=== PATIENT | female | born 1960 | race Caucasian/White ===

== ENCOUNTER 2016-05-08 10:26 | Emergency (ER) | payer OTHER ==
[2016-05-08 10:31] VITALS: BP 142/91; PULSE 72; TEMP 98.2; BMI 31.9
[2016-05-08] MEDS ORDERED: ACETAMINOPHEN 325 MG TABLET (FP) PO ONE (11:36)
[2016-05-08] MEDS ORDERED: OXYCODONE/APAP 5/325MG COMBO TABLET PO ONE (11:36)
[2016-05-08] MEDS ORDERED: OXYCODONE/APAP 5/325MG COMBO TABLET ONE (11:48)
[2016-05-08] MEDS ORDERED: ACETAMINOPHEN 325 MG TABLET (FP) ONE (11:48)
--- NOTE | 2016-05-08 11:49 | PDOC ---
History of Present Illness - General Chief Complaint: Pain Stated Complaint: LT SIDE OF FACE PAIN Time Seen by Provider: 05/08/16 11:17 History Source: Patient Exam Limitations: No Limitations - History of Present Illness Initial Comments: 05/08/16 11:45 55-year-old female presents to the ED with complaints of left neck pain radiating to her left jaw and temporal region. Patient thinks pain started about 5 days ago and went to her dentist taking was her back tooth but when the x-ray was taken the doctor said there was no signs of infection but may be due to a crack in her porcelain crown causing nerve discomfort. Patient was given prophylactic antibiotics and ibuprofen until her follow-up next week. Patient does have history of thyroid CA with radiation therapy 5 years ago. Patient denies change in voice, difficulty swallowing, neck stiffness, fever or chills. Timing/Duration: constant Severity: moderate Associated Symptoms: reports: denies symptoms Past History - Past Medical History Allergies/Adverse Reactions: Allergies Allergy/AdvReac Type Severity Reaction Status Date / Time No Known Drug Allergies Allergy Verified 05/08/16 10:30 Home Medications: Ambulatory Orders Montelukast Na [Singulair -] 10 mg PO HS #0 tablet 06/06/12 Citalopram Hydrobromide [Celexa] 20 mg PO HS 10/15/13 Levothyroxine Sodium [Synthroid] 150 mcg PO DAILY 10/15/13 Diazepam [Valium] 5 mg PO Q8H #5 tablet MDD 3 03/11/16 Anemia: Yes Asthma: Yes Cancer: Yes (thyroid) GI Disorders: Yes (acid reflux) Suicide Attempt (Hx): No Thyroid Disease: No - Immunization History Immunization Up to Date: Yes - Psycho/Social/Smoking Cessation Hx Anxiety: No Suicidal Ideation: No Smoking Status: No Smoking History: Never smoked Have you smoked in the past 12 months: No Number of Cigarettes Smoked Daily: 0 Hx Alcohol Use: No Drug/Substance Use Hx: No Substance Use Type: None Hx Substance Use Treatment: No Patient Lives Alone: No Lives with/in: spouse/SO Review of Systems - Review of Systems Able to Perform ROS?: Yes Constitutional: No: Symptoms Reported HEENTM: Yes: Throat Pain, Dental Problems. No: Difficulty Swallowing, Mouth Swelling Respiratory: No: Cough, Shortness of Breath Cardiac (ROS): No: Symptoms Reported Musculoskeletal: Yes: Neck Pain (left ) Integumentary: No: Symptoms Reported Neurological: Yes: Headache (left temporal) Endocrine: No: Symptoms Reported Hematologic/Lymphatic: No: Symptoms Reported *Physical Exam - Vital Signs Last Vital Signs Temp Pulse Resp BP Pulse Ox 98.2 F 72 20 142/91 100 05/08/16 10:27 05/08/16 10:27 05/08/16 10:27 05/08/16 10:27 05/08/16 10:27 - Physical Exam General Appearance: Yes: Nourished, Appropriately Dressed. No: Apparent Distress HEENT: positive: EOMI, RENETTA, TMs Normal, Pharynx Normal (no abscess/caries , # 17 tender to touch when tapped with porcelin cap over tooth. ) Neck: positive: Tender (left scm ), Supple, Tender lateral (left). negative: Decreased range of motion, Lymphadenopathy (R), Lymphadenopathy (L) Respiratory/Chest: positive: Lungs Clear, Normal Breath Sounds. negative: Respiratory Distress, Accessory Muscle Use Cardiovascular: positive: Regular Rhythm, Regular Rate. negative: Murmur Gastrointestinal/Abdominal: positive: Soft. negative: Tenderness Integumentary: positive: Normal Color, Warm, Moist Neurologic: positive: Motor Strength 5/5 (ambulatory) ED Treatment Course - RADIOLOGY Radiology Studies Ordered: Category Date Time Status SOFT TISSUE NECK CT W/O CONTR [CT] Stat CT Scan 05/08/16 11:35 Ordered Medical Decision Making - Medical Decision Making 05/08/16 12:01 Patient with left neck pain for the past 5 days associated with left dental pain. Patient with normal clinical exam except tenderness to #17 and with noted tenderness to the left SCM. Althought this may be dental nerve pain. But due to patient's history of thyroid cancer patient's concerning for mass. Pt ordered for percocet and soft tissue ct without contrast. 05/08/16 13:04 Patient after receiving Percocet states she started to feel nauseous and slightly dizzy. Patient states did not eat food today and states sometimes she gets like this was an empty stomach. Patient ordered for Zofran and will reevaluate CT shows apparent interval development of subtle trace amount of retropharyngeal fluid at the level of the upper neck questionable due to current or recent pharyngitis. Recommend correlation clinically and follow-up imaging to document resolution. No obvious mass lesion or lymphadenopathy. There is no CT evidence of neoplastic disease or acute pathology. Patient will be sent home and to follow-up with her dentist as scheduled next week and follow up with her PCP. 05/08/16 13:16 Pt states feeling better and requests to leave. Pt requesting percocet and will eat before meals. *DC/Admit/Observation/Transfer Diagnosis at time of Disposition: Neck pain on left side - Discharge Dispostion Disposition: HOME Condition at time of disposition: Improved - Referrals Referrals: Kelly Andujar MD [Primary Care Provider] - - Patient Instructions Printed Discharge Instructions: DI for Neck Pain Additional Instructions: May apply heating pad to the affected area. Drink plenty of warm fluids to alleviate her discomfort. Continue with your medication regimen as prescribed by her dentist and follow- up as scheduled.
[2016-05-08] MEDS ORDERED: ONDANSETRON *ODT* 4 MG TABLET ONE (12:41)
[2016-05-08] MEDS ORDERED: ONDANSETRON 8 MG TABLET (FP) PO ONE (13:06)
== END 2016-05-08 14:06 | disposition home or self-care (01) ==
LOC: JERFT 10:26 → JER 10:26 → JERFT 14:06
DX: M54.2 Cervicalgia (principal); D64.9 Anemia, unspecified; J45.909 Unspecified asthma, uncomplicated; Z85.850 Personal history of malignant neoplasm of thyroid
CPT/HCPCS: 70490-TC; 99281-25

== ENCOUNTER 2018-09-29 14:43 | Emergency (ER) | payer OTHER | END 2018-09-29 20:54 | disposition home or self-care (01) | LOC: JER 14:43 ==

== ENCOUNTER 2018-12-27 01:08 | Emergency (ER) | payer OTHER ==
[2018-12-27 01:41] VITALS: TEMP 97.9; BMI 31.8
[2018-12-27] MEDS ORDERED: hydrOXYzine HCL 50 MG TABLET PO ONE (02:52)
--- NOTE | 2018-12-27 03:29 | PDOC ---
History of Present Illness - General Chief Complaint: Psychiatric Stated Complaint: FEELING ANXIOUS Time Seen by Provider: 12/27/18 02:09 History Source: Patient Exam Limitations: No Limitations - History of Present Illness Initial Comments: 12/27/18 03:24 58F w/ pmh depression, thyroid CA, asthma, chest myoma s/p resection presents to [facility] with complaint of inability to sleep due to sensation of feeling anxious, panicky, hot + cold sensation running behind head, temporal-posterior GARCÍA(5/10 severity) x2d. Also had complaint of nonproductive cough, trouble swallowing. Endorses feeling anxious about her daughter. Pt's mother in July. No changes in medications. Compliant with meds. Has had h/o of inability to sleep for 17d, 15ys prior. Associated Symptoms: reports: headaches. denies: loss of appetite, nausea/ vomiting, rash, seizure, shortness of breath Past History - Past Medical History Allergies/Adverse Reactions: Allergies Allergy/AdvReac Type Severity Reaction Status Date / Time No Known Drug Allergies Allergy Verified 12/27/18 01:38 Home Medications: Ambulatory Orders Montelukast Na [Singulair -] 10 mg PO HS #0 tablet 06/06/12 Levothyroxine Sodium [Synthroid] 150 mcg PO DAILY 10/15/13 Citalopram Hydrobromide [Celexa -] 10 mg PO DAILY 12/27/18 hydrOXYzine HCL [Atarax -] 25 mg PO DAILY PRN #14 tablet 12/27/18 Anemia: Yes Asthma: Yes Cancer: Yes (thyroid) COPD: No GI Disorders: Yes (acid reflux) Psychiatric Problems: Yes (depression,) Thyroid Disease: Yes (thyroid ca,) - Immunization History Immunization Up to Date: Yes - Suicide/Smoking/Psychosocial Hx Smoking Status: No Smoking History: Unknown if ever smoked Have you smoked in the past 12 months: No Number of Cigarettes Smoked Daily: 0 Information on smoking cessation initiated: No Hx Alcohol Use: No Drug/Substance Use Hx: No Substance Use Type: None Hx Substance Use Treatment: No *Physical Exam - Vital Signs Last Vital Signs Temp Pulse Resp BP Pulse Ox 97.9 F 83 20 168/89 98 12/27/18 01:15 12/27/18 01:15 12/27/18 01:15 12/27/18 01:15 12/27/18 01:15 ED Treatment Course - Medications Given in the ED: ED Medications Discontinued Medications Generic Name Dose Route Start Last Admin Trade Name Freq PRN Reason Stop Dose Admin Hydroxyzine HCl 50 mg 12/27/18 02:52 12/27/18 03:18 Hydroxyzine Hcl PO 12/27/18 02:53 50 mg ONCE ONE Administration Medical Decision Making - Medical Decision Making 12/27/18 03:32 - will administer atarax - will prescribe atarax for home *DC/Admit/Observation/Transfer Diagnosis at time of Disposition: Anxiety disorder, unspecified Qualifiers: Anxiety disorder type: unspecified anxiety disorder Qualified Code(s): F41.9 - Anxiety disorder, unspecified - Discharge Dispostion Disposition: HOME Condition at time of disposition: Stable Decision to Admit order: No - Prescriptions Prescriptions: hydrOXYzine HCL [Atarax -] 25 mg PO DAILY PRN #14 tablet PRN Reason: Anxiety - Referrals Referrals: Kelly Andujar MD [Primary Care Provider] - - Patient Instructions Printed Discharge Instructions: DI for Anxiety -- Adult Additional Instructions: You were evaluated for anxiety and inability to sleep. You were treated with hydroxyzine to relieve your anxiety and insomnia. You were deemed stable for discharge. please return to the ED for: - severe unremitting headache - severe dizziness - Post Discharge Activity
--- NOTE | 2018-12-27 03:42 | PDOC ---
Attending Attestation - Resident Resident Name: Arthur Estrada - ED Attending Attestation I have performed the following: I have examined & evaluated the patient, The case was reviewed & discussed with the resident, I agree w/resident's findings & plan - HPI HPI: 12/27/18 03:39 see resident hpi - Physicial Exam PE: 12/27/18 03:40 agree with resident exam - Medical Decision Making 12/27/18 03:40 58 yo female with insomnia due to panic and anxiety related to family issues no si/hi plan for d/c with atarax prn with OP psychiatry follow up
[2018-12-27 03:49] VITALS: BP 144/80; PULSE 76
--- NOTE | 2018-12-28 11:46 | EKG ---
Test Reason : Blood Pressure : / mmHG Vent. Rate : 066 BPM Atrial Rate : 066 BPM P-R Int : 190 ms QRS Dur : 072 ms QT Int : 402 ms P-R-T Axes : 071 005 049 degrees QTc Int : 421 ms POOR DATA QUALITY, INTERPRETATION MAY BE ADVERSELY AFFECTED NORMAL SINUS RHYTHM NORMAL ECG WHEN COMPARED WITH ECG OF 29-SEP-2018 14:46, NO SIGNIFICANT CHANGE WAS FOUND Confirmed by FIDELINA GARZA, SO ([id number]) on 12/28/2018 11:46:10 AM Referred By: Confirmed By:SO KITCHEN MD
== END 2018-12-27 03:58 | disposition home or self-care (01) ==
LOC: JER 01:08
DX: F41.9 Anxiety disorder, unspecified (principal); J45.909 Unspecified asthma, uncomplicated; F32.9 Major depressive disorder, single episode, unspecified; K21.9 Gastro-esophageal reflux disease without esophagitis; Z85.850 Personal history of malignant neoplasm of thyroid
CPT/HCPCS: 93005; 93010; 99281-25

== ENCOUNTER 2019-01-03 16:07 | Emergency (ER) | payer OTHER ==
--- NOTE | 2019-01-03 16:16 | PDOC ---
History of Present Illness <Daysi Mcallister - Last Filed: 01/03/19 18:13> - General History Source: Patient Exam Limitations: No Limitations - History of Present Illness Initial Comments: 58 year old female with PMH GERD (noncompliant with medication), anxiety, depression, asthma, thyroid cancer presented to ED for epigastric pain since 1529 today. Pt reported that she did not take her Omeprazole 20 mg last night or this morning, and she is prescribed BID. She stated she did not eat any food all day, and then while in the office at her Thyroid doctor appointment she decided to take 1 Omeprazole 20 mg. She stated she immediately felt epigastric pain, radiating up her throat, constant, burning, no aggravating or alleviating factors. Pt reported nausea, sour taste in mouth, 2 episodes of loose stools. Pt denied chest pain, shortness of breath, vomiting, blood in stool. <Sharee Pimentel - Last Filed: 01/03/19 19:20> - General Chief Complaint: Pain Stated Complaint: ABDOMINAL PAIN Time Seen by Provider: 01/03/19 16:15 Past History <Jose Mcallisterica - Last Filed: 01/03/19 18:13> - Past Medical History Anemia: Yes Asthma: Yes Cancer: Yes (thyroid) COPD: No GI Disorders: Yes (acid reflux) Psychiatric Problems: Yes (depression,) Thyroid Disease: Yes (thyroid ca,) - Immunization History Immunization Up to Date: Yes - Suicide/Smoking/Psychosocial Hx Smoking Status: No Smoking History: Unknown if ever smoked Have you smoked in the past 12 months: No Number of Cigarettes Smoked Daily: 0 Hx Alcohol Use: No Drug/Substance Use Hx: No Substance Use Type: None Hx Substance Use Treatment: No <LorenSharee - Last Filed: 01/03/19 19:20> - Past Medical History Allergies/Adverse Reactions: Allergies Allergy/AdvReac Type Severity Reaction Status Date / Time No Known Drug Allergies Allergy Verified 01/03/19 16:57 Home Medications: Ambulatory Orders Montelukast Na [Singulair -] 10 mg PO HS #0 tablet 06/06/12 Levothyroxine Sodium [Synthroid] 150 mcg PO DAILY 10/15/13 Citalopram Hydrobromide [Celexa -] 10 mg PO DAILY 12/27/18 hydrOXYzine HCL [Atarax -] 25 mg PO DAILY PRN #14 tablet 12/27/18 Omeprazole 20 mg PO DAILY 01/03/19 Review of Systems - Review of Systems Able to Perform ROS?: Yes Comments:: General: denied fever, chills, generalized weakness. HEENT: denied sore throat, rhinorrhea, ear pain. Cardiovascular: denied chest pain, palpitations, syncope, diaphoresis. Respiratory: denied shortness of breath, cough, sputum production, hemoptysis. Gastrointestinal: admitted to abdominal pain, nausea. denied vomiting, diarrhea , constipation, blood in stool. Genitourinary: denied dysuria, increased urinary frequency, hematuria, urinary incontinence, flank pain. Back: denied back pain. Musculoskeletal: denied joint pain, muscle pain, joint swelling. Neurological: denied headache, dizziness, numbness, tingling, weakness. Integumentary: denied rash, laceration, abrasion. Hematologic/Lymphatic: denied bruising or bleeding. <Sharee Pimentel - Last Filed: 01/03/19 19:20> *Physical Exam - Vital Signs Last Vital Signs Temp Pulse Resp BP Pulse Ox 97.9 F 56 L 16 116/61 98 01/03/19 16:49 01/03/19 16:49 01/03/19 16:49 01/03/19 16:49 01/03/19 16:49 <Daysi Mcallister - Last Filed: 01/03/19 18:13> - Physical Exam Comments: Constitutional: Well-nourished, Well-developed, appearing stated age. overweight. HEENT: head is normocephalic, atraumatic. EOMI. PERRLA. Neck: supple. Full ROM. Cardiovascular: regular heart rhythm. no murmurs. no pericardial friction rub. Respiratory: clear to auscultation bilaterally. no crackles, rhonchi or wheezing. no stridor. Gastrointestinal: soft, nontender. normal bowel sounds. no rebound, guarding, masses. Extremities: peripheral pulses intact. no lower extremity edema. Neurological: CN 2-12 grossly intact. moves all four extremities. Psych: awake, alert, oriented x3. follows commands. answers questions appropriately. <Sharee Pimentel - Last Filed: 01/03/19 19:20> ED Treatment Course - LABORATORY CBC & Chemistry Diagram: 01/03/19 17:15 01/03/19 17:15 - ADDITIONAL ORDERS Additional order review: Laboratory Results 01/03/19 01/03/19 17:15 17:14 Magnesium 2.2 Lipase 91 Urine Color Yellow Urine Appearance Clear Urine pH 8.5 H D Ur Specific [place] 1.017 Urine Protein Negative Urine Glucose (UA) Negative Urine Ketones Negative Urine Blood Trace Urine Nitrite Negative Urine Bilirubin Negative Urine Urobilinogen 0.2 Ur Leukocyte Esterase 1+ H Urine WBC (Auto) 7 Urine Casts (Auto) 10 U Epithel Cells (Auto) 2.3 Urine Bacteria (Auto) 11.8 Urine Yeast (Auto) Review A* 01/03/19 17:15 RBC 4.98 MCV 83.6 MCHC 31.9 L RDW 15.7 H MPV 7.3 L Neutrophils % 75.5 Lymphocytes % 15.5 D Monocytes % 5.7 Eosinophils % 0.9 Basophils % 2.4 H - Medications Given in the ED: ED Medications Discontinued Medications Generic Name Dose Route Start Last Admin Trade Name Tonja PRN Reason Stop Dose Admin Al Hydroxide/Mg Hydroxide 30 ml 01/03/19 16:29 01/03/19 17:27 Mylanta Oral Suspension - PO 01/03/19 16:30 30 ml ONCE ONE Administration Famotidine/Sodium Chloride 20 mg in 50 mls @ 100 mls/hr 01/03/19 16:29 17:28 Pepcid 20 Mg Premixed Ivpb - IVPB 01/03/19 16:58 100 mls/hr ONCE ONE Administration Sodium Chloride 1,000 mls @ 1,000 mls/hr 01/03/19 16:29 01/03/19 17:27 Normal Saline - IV 01/03/19 17:28 1,000 mls/hr ASDIR STA Administration Ondansetron HCl 4 mg 01/03/19 16:29 01/03/19 17:28 Zofran Injection IVPUSH 01/03/19 16:30 4 mg ONCE ONE Administration <Daysi Mcallister - Last Filed: 01/03/19 18:13> - LABORATORY CBC & Chemistry Diagram: 01/03/19 17:15 01/03/19 17:15 <Sharee Pimentel - Last Filed: 01/03/19 19:20> Medical Decision Making - Medical Decision Making 58 year old female wit above PMH presented to ED for epigastric pain since 1529 today. Abdominal examination revealed no tenderness to palpation, murphys negative. Initial Vital Signs Temp Pulse Resp BP Pulse Ox 97.9 F 56 L 16 116/61 98 01/03/19 16:49 01/03/19 16:49 01/03/19 16:49 01/03/19 16:49 01/03/19 16:49 Afebrile. No tachycardia. Mild bradycardia - pt is asymptomatic. No tachypnea. No hypotension. No hypoxia on room air. Labs ordered: CBC, CMP, Mag, TSH, troponin Imaging ordered: none Medications ordered: pepcid, maalox, zofran, normal saline bolus 1000 cc once EKG performed at 1645: rate 56, regular rhythm, normal axis, normal intervals, QTc 413, no acute ST changes. 01/03/19 18:00 CBC WBC 6.9 K/mm3 (4.0-10.0) 01/03/19 17:15 RBC 4.98 M/mm3 (3.60-5.2) 01/03/19 17:15 Hgb 13.3 GM/dL (10.7-15.3) 01/03/19 17:15 Hct 41.7 % (32.4-45.2) 01/03/19 17:15 MCV 83.6 fl (80-96) 01/03/19 17:15 MCH 26.7 pg (25.7-33.7) 01/03/19 17:15 MCHC 31.9 g/dl (32.0-36.0) L 01/03/19 17:15 RDW 15.7 % (11.6-15.6) H 01/03/19 17:15 Plt Count 308 K/MM3 (134-434) 01/03/19 17:15 MPV 7.3 fl (7.5-11.1) L 01/03/19 17:15 Absolute Neuts (auto) 5.2 K/mm3 (1.5-8.0) 01/03/19 17:15 Neutrophils % 75.5 % (42.8-82.8) 01/03/19 17:15 Lymphocytes % 15.5 % (8-40) D 01/03/19 17:15 Monocytes % 5.7 % (3.8-10.2) 01/03/19 17:15 Eosinophils % 0.9 % (0-4.5) 01/03/19 17:15 Basophils % 2.4 % (0-2.0) H 01/03/19 17:15 Nucleated RBC % 0 % (0-0) 01/03/19 17:15 No leukocytosis. No anemia. Urine Test Results Urine Color Yellow 01/03/19 17:14 Urine Appearance Clear 01/03/19 17:14 Urine pH 8.5 (5.0-8.0) H D 01/03/19 17:14 Ur Specific [place] 1.017 (1.010-1.035) 01/03/19 17:14 Urine Protein Negative (NEGATIVE) 01/03/19 17:14 Urine Glucose (UA) Negative (NEGATIVE) 01/03/19 17:14 Urine Ketones Negative (NEGATIVE) 01/03/19 17:14 Urine Blood Trace (NEGATIVE) 01/03/19 17:14 Urine Nitrite Negative (NEGATIVE) 01/03/19 17:14 Urine Bilirubin Negative (NEGATIVE) 01/03/19 17:14 Ur Leukocyte Esterase 1+ (NEGATIVE) H 01/03/19 17:14 WBC = 7 Pt is asymptomatic, positive for urine casts - negative for UTI. 01/03/19 18:35 CMP Sodium 139 mmol/L (136-145) 01/03/19 17:15 Potassium 3.5 mmol/L (3.5-5.1) 01/03/19 17:15 Chloride 101 mmol/L (98-107) 01/03/19 17:15 Carbon Dioxide 32 mmol/L (21-32) 01/03/19 17:15 Anion Gap 6 MMOL/L (8-16) L 01/03/19 17:15 BUN 9.4 mg/dL (7-18) 01/03/19 17:15 Creatinine 0.7 mg/dL (0.55-1.3) 01/03/19 17:15 Est GFR (CKD-EPI)AfAm 112.26 01/03/19 17:15 Est GFR (CKD-EPI)NonAf 96.86 01/03/19 17:15 Random Glucose 82 mg/dL (74-106) 01/03/19 17:15 Calcium 10.0 mg/dL (8.5-10.1) 01/03/19 17:15 Magnesium 2.2 mg/dL (1.8-2.4) 01/03/19 17:15 Total Bilirubin 0.5 mg/dL (0.2-1) 01/03/19 17:15 AST 19 U/L (15-37) 01/03/19 17:15 ALT 27 U/L (13-61) 01/03/19 17:15 Alkaline Phosphatase 63 U/L (45-117) 01/03/19 17:15 Troponin I < 0.02 ng/ml (0.00-0.05) 01/03/19 17:15 Total Protein 8.0 g/dl (6.4-8.2) 01/03/19 17:15 Albumin 4.5 g/dl (3.4-5.0) 01/03/19 17:15 Lipase 91 U/L (73-393) 01/03/19 17:15 TSH 0.25 uIU/ml (0.358-3.74) L 01/03/19 17:15 No electrolyte abnormalities. No RICHELLE. No transaminitis. Lipase wnl. Troponin wnl Pt now has RUQ tenderness to palpation. Imaging ordered: RUQ US 01/03/19 19:17 RUQ US report: Name: [facility] Phys: VivienneAliciaBarbara DO : 1960 Age: 58 Sex: F [facility] Acct: [id number] Loc: [address] Exam Date: 01/03/19 [place]: [facility] [place] [id number] Unit Number: [id number] EXAM#: TYPE/EXAM: RESULT: [id number] US/ABDOMEN US -LIMITED Right upper quadrant abdomen ultrasound Clinical information: epigastric pain No biliary calculus is seen. The gallbladder demonstrates no discrete abnormality. No pericholecystic fluid is noted. The common bile duct diameter appears unremarkable measuring 0.3 cm. The liver, right kidney and partially visualized pancreas demonstrate no sonographic pathology. No free intraperitoneal fluid is seen. Impression: No definite sonographic abnormality is identified. Reported By : Abhishek Fenton MD 01/03/191909 Pt informed of results, reported improvement of pain. Pt has PPI prescription, was noncompliant, pt informed to take her prescribed medication. Pt provided with GI F/U and advised to be evaluated for EGD. <Sharee Pimentel - Last Filed: 01/03/19 19:20> *DC/Admit/Observation/Transfer <Daysi Mcallister - Last Filed: 01/03/19 18:13> - Discharge Dispostion Decision to Admit order: No <Sharee Pimentel - Last Filed: 01/03/19 19:20> Diagnosis at time of Disposition: Epigastric pain - Discharge Dispostion Disposition: HOME Condition at time of disposition: Stable - Referrals Referrals: Naun Zee DO [Staff Physician] - Tom Sanchez MD [Staff Physician] - Kartik Soriano MD [Staff Physician] - Mimi Dominguez DO [Staff Physician] - - Patient Instructions Printed Discharge Instructions: DI for Upper GI Endoscopy, DI for Gastroesophageal Reflux Disease (GERD), GERD Diet Additional Instructions: You were seen today for epigastric pain. Your lab work was normal. Your EKG was normal. Your abdominal US report is as follows: Name: [facility] RAD[facility] Phys: Barbara Palafox DO : 1960 Age: 58 Sex: F [facility] Acct: [id number] Loc: [address] Exam Date: Status: [place] [address] Unit Number: [id number] EXAM#: TYPE/EXAM: RESULT: [id number] US/ABDOMEN US - LIMITED Right upper quadrant abdomen ultrasound Clinical information: epigastric pain No biliary calculus is seen. The gallbladder demonstrates no discrete abnormality. No pericholecystic fluid is noted. The common bile duct diameter appears unremarkable measuring 0.3 cm. The liver, right kidney and partially visualized pancreas demonstrate no sonographic pathology. No free intraperitoneal fluid is seen. Impression: No definite sonographic abnormality is identified. Reported By: Abhishek Fenton MD 01/03/191909 Follow up with your primary care doctor regarding your Emergency Room visit within 3 days. Your care is not complete until you follow up. Bring all paperwork given to you today to your appointment. Bring a list of all medications you are currently taking. Follow up with a tableau lead within 5 days. Your care is not complete until you follow up, you need to be evaluated for an endoscopy. I have provided you with multiple referrals. Take all your prescribed medications, do not skip any doses. Eat small meals throughout the day. Follow the GERD Diet - I have included educational information on foods to avoid irritating your stomach. Do not eat <2 hours before bed. Return to the Emergency Department for increasing pain, vomiting, blood in stool , fever, chest pain, shortness of breath, severe back pain or any other new, worsening or concerning symptoms. TAIWANESE TRANSLATION PROVIDED VIA [employer] Usted fue visto hoy por dolor epigstrico. Tu trabajo de laboratorio fue normal. Tu electrocardiograma fue normal. Pierce informe abdominal de EE. UU. Es el siguiente: Nombre: [facility] Phys: Barbara Palafox DO : 1960 Edad: 58 Sexo: F [facility] Acct: [id number] Loc: [address] Exam Fecha: 03/01/19 Estado: [place] [address] [place] de unidad : [id number] # DE ACCESIN: [id number] # DE EXAMEN: TIPO / EXAMEN : RESULTADO: [id number] US / ABDOMEN US -LIMITADO Abdomen cuadrante superior derecho ecografa Informacin clnica: dolor epigstrico No se observa clculo biliar. La vescula biliar no muestra ninguna anormalidad discreta. No se observa lquido pericolequstico. El dimetro del conducto biliar comn parece poco comn, mide 0.3 cm. El hgado, el rin derecho y el pncreas parcialmente visualizado no muestran patologa ecogrfica. No se observa lquido intraperitoneal ruby. Impresin: no se identifica ninguna anomala ecogrfica definida. Reportado por: Abhishek Fenton MD 03/01/191909 Beverley un seguimiento con pierce mdico de atencin primaria con respecto a pierce visita a la areli de emergencias dentro de los 3 monet. Pierce atencin no estar completa hasta que realice el seguimiento. Traiga todos los documentos que le entregaron hoy a pierce trino. Traiga sofi lista de todos los medicamentos que est tomando actualmente. [place] un seguimiento con un gastroenterlogo dentro de los 5 monet. Pierce atencin no estar completa hasta que realice el seguimiento, debe ser evaluado para sofi endoscopia. Te he proporcionado mltiples referencias. [place] todos desmond medicamentos recetados, no omita ninguna dosis. Coma comidas pequeas bud todo el da. Siga la dieta GERD: he incluido informacin educativa sobre alimentos para evitar irritar pierce estmago. No coma <2 horas antes de acostarse. Regrese al departamento de emergencias para aumentar el dolor, los vmitos, la jose guadalupe en las heces, la fiebre, el dolor en el pecho, la falta de aliento, el dolor de espalda intenso o cualquier otro sntoma nuevo, que empeore o se relacione. Print Language: TAIWANESE - Post Discharge Activity Forms/Work/School Notes: Back to Work
[2019-01-03] MEDS ORDERED: ONDANSETRON 4 MG/2 ML VIAL IVPUSH ONE (16:29)
[2019-01-03] MEDS ORDERED: FAMOTIDINE 20 MG/50 ML IVPB 20 MG/50 ML MG IVPB ONE ×2 (16:29→17:03)
[2019-01-03] MEDS ORDERED: MAG HYDROX/AL HYDROX/SIMETH 30 ML UNIT-DOSE CUP PO ONE (16:29)
[2019-01-03] MEDS ORDERED: SODIUM CHLORIDE 1,000 ML IV STA (16:29)
[2019-01-03 16:54] VITALS: BP 116/61; PULSE 56; TEMP 97.9; BMI 31.4
[2019-01-03] MEDS ORDERED: ONDANSETRON 4 MG/2 ML VIAL ONE (17:03)
[2019-01-03] MEDS ORDERED: MAG HYDROX/AL HYDROX/SIMETH 30 ML UNIT-DOSE CUP ONE (17:03)
[2019-01-03 17:47] LABS: BASO % 2.4 % (0-2.0); EOS % 0.9 % (0-4.5); HEMATOCRIT 41.7 % (32.4-45.2); HEMOGLOBIN 13.3 GM/dL (10.7-15.3); LYMPH % 15.5 % (8-40); MCH 26.7 pg (25.7-33.7); MCHC 31.9 g/dl (32.0-36.0); MEAN CELL VOLUME 83.6 fl (80-96); MEAN PLT VOLUME 7.3 fl (7.5-11.1); MONO % 5.7 % (3.8-10.2); NEUT % 75.5 % (42.8-82.8); PLATELET COUNT 308 K/MM3 (134-434); RBC 4.98 M/mm3 (3.60-5.2); RDW 15.7 % (11.6-15.6); WHITE BLOOD COUNT 6.9 K/mm3 (4.0-10.0)
[2019-01-03 17:48] LABS: EPI CELLS 2.3 /HPF (0-5/HPF); HYALINE CASTS 10 /lpf (0-8); PH,URINE 8.5 (5.0-8.0); URINE APPEARANCE CLEAR; URINE BACTERIA 11.8 /hpf (NEGATIVE); URINE BILIRUBIN NEGATIVE (NEGATIVE); URINE COLOR YELLOW; URINE GLUCOSE (UA) NEGATIVE (NEGATIVE); URINE KETONE NEGATIVE (NEGATIVE); URINE LEUK ESTERASE 1+ (NEGATIVE); URINE NITRITE NEGATIVE (NEGATIVE); URINE PROTEIN NEGATIVE (NEGATIVE); URINE UROBILINOGEN 0.2 mg/dL (0.2-1.0); URINE WBC 7 /hpf (0-5)
[2019-01-03 18:09] LABS: MAGNESIUM 2.2 mg/dL (1.8-2.4)
[2019-01-03 18:21] LABS: ALBUMIN 4.5 g/dl (3.4-5.0); ALK PHOS 63 U/L (45-117); ANION GAP 6 MMOL/L (8-16); BILIRUBIN,TOTAL 0.5 mg/dL (0.2-1); BLOOD UREA NITROGEN 9.4 mg/dL (7-18); CHLORIDE 101 mmol/L (98-107); CO2 32 mmol/L (21-32); CREATININE 0.7 mg/dL (0.55-1.3); GLUCOSE,RANDOM 82 mg/dL (74-106); POTASSIUM 3.5 mmol/L (3.5-5.1); SGOT/AST 19 U/L (15-37); SGPT/ALT 27 U/L (13-61); SODIUM 139 mmol/L (136-145)
[2019-01-03 18:29] LABS: INR 1.07 (0.83-1.09); PROTHROMBIN TIME (PATIENT) 12.6 SEC (9.7-13.0)
--- NOTE | 2019-01-03 18:33 | PDOC ---
Documentation entered by Cat Sanders SCRIBE, acting as scribe for Barbara Palafox DO. Barbara Palafox DO: This documentation has been prepared by the Marilyn calderon Brenda, SCRIBE, under my direction and personally reviewed by me in its entirety. I confirm that the documentation accurately reflects all work, treatment, procedures, and medical decision making performed by me. Attending Attestation - Resident Resident Name: Sharee Pimentel - ED Attending Attestation I have performed the following: I have examined & evaluated the patient, The case was reviewed & discussed with the resident, I agree w/resident's findings & plan, Exceptions are as noted - HPI HPI: 01/03/19 18:52 The patient is a 58 year old female, with a significant PMH of GERD, depression , thyroid CA, asthma, thyroid cancer s/p resection and chest myoma s/p resection , who presents to the emergency department with burning epigastric pain that radiates to her throat since 3:30pm today. She reports that she has not taken her regular does of Omeprazole last night or this morning. She states that when she arrived to her appointment with her ENT today, she took 1 omeprazole, and states that she immediately began to feel epigastric pain that radiates up to her throat. The patient denies any aggravating or alleviating factors. Denies chest pain, shortness of breath, headache and dizziness. Denies fever, chills, nausea, vomiting, diarrhea and constipation. Denies dysuria, frequency, urgency and hematuria. Allergies: NKA Past surgical history: thyroid cancer s/p resection and chest myoma s/p resection Social history: Former smoker. PCP: Kelly Andujar ENT: Dr. Shaji Dunn - Physicial Exam PE: 01/03/19 18:52 GENERAL: (+) Hoarse voice. Awake, alert, and fully oriented, in no acute distress HEAD: No signs of trauma NECK: Normal ROM, supple, no lymphadenopathy, JVD, or masses LUNGS: Breath sounds equal, clear to auscultation bilaterally. No wheezes, and no crackles HEART: Regular rate and rhythm, normal S1 and S2, no murmurs, rubs or gallops ABDOMEN: Soft, nontender, normoactive bowel sounds. No guarding, no rebound. No masses EXTREMITIES: Normal range of motion, no edema. No clubbing or cyanosis. No cords, erythema, or tenderness NEUROLOGICAL: Cranial nerves II through XII grossly intact. Normal speech. SKIN: Warm, Dry, normal turgor, no rashes or lesions noted. - Medical Decision Making 01/03/19 18:32 I, Dr. Barbara Palafox, DO, attest that this document has been prepared under my direction and personally reviewed by me in its entirety. I further attest, that it accurately reflects all work, treatment, procedures and medical decision -making performed by me. a/p: 58yo female with hx of thyroid ca s/p resection at [facility] and chronic vocal cord dysfuction who follows with Dr. Mercado with epigastric pain -burning sensation in chest, sour taste in mouth - consisent with GERD -states no assoc with food, can happen with or without food and no improvement with food -no nausea or vomiting -had 2 loose stools yesterday -no fevers -no blood in stool -no recent abx -dx with GERD by Dr. Mercado and started on omeprazole 10 days ago -has never seen gi or had endoscopy -will send labs, ekg, RUQ ultrasound -neg murphys but increasing abd pain -will need outpt GI follow up -low risk acs -no PE risk factors -no pleuritic cp -will monitor and reassess -GI meds ordered 01/03/19 18:37 pt states pain resolved with GI meds, labs reviewed, pending chem pending RUQ ultrasound 01/03/19 19:17 no acute sono findings stable for dc to home with GI follow up Heart Score/ECG Review - ECG Intrepretation Comment:: 01/03/19 18:37 sinus ramiro at 58, nl axis, nl interval, no acute st/t wave findings
--- NOTE | 2019-01-04 11:50 | EKG ---
Test Reason : Blood Pressure : / mmHG Vent. Rate : 056 BPM Atrial Rate : 056 BPM P-R Int : 186 ms QRS Dur : 090 ms QT Int : 428 ms P-R-T Axes : 055 023 040 degrees QTc Int : 413 ms SINUS BRADYCARDIA POSSIBLE LEFT ATRIAL ENLARGEMENT INCOMPLETE RBBB Confirmed by ALEXANDER RAYMOND MD ([id number]) on 01/04/2019 11:50:24 AM Referred By: Confirmed By:ALEXANDER RAYMOND MD
== END 2019-01-03 19:51 | disposition home or self-care (01) ==
LOC: JER 16:07
PROC: 3E0337Z Introduction of Electrolytic and Water Balance Substance into Peripheral Vein, Percutaneous Approach (ICD-10-PCS; principal; 2019-01-03)
PROC: 3E033GC Introduction of Other Therapeutic Substance into Peripheral Vein, Percutaneous Approach (ICD-10-PCS; 2019-01-03)
PROC: 3E033GC Introduction of Other Therapeutic Substance into Peripheral Vein, Percutaneous Approach (ICD-10-PCS; 2019-01-03)
DX: K21.9 Gastro-esophageal reflux disease without esophagitis (principal); F41.9 Anxiety disorder, unspecified; F32.9 Major depressive disorder, single episode, unspecified; J45.909 Unspecified asthma, uncomplicated; Z85.850 Personal history of malignant neoplasm of thyroid
CPT/HCPCS: 36415; 76705-TC; 80053; 81003; 83690; 83735; 84443; 84484; 85025; 85610; 85730; 87086; 93005; 93010; 99282-25; J7030

== ENCOUNTER 2020-08-14 08:37 | Emergency (ER) | payer OTHER ==
[2020-08-14 08:46] VITALS: BP 106/71; PULSE 65; TEMP 98.5; BMI 30.9
[2020-08-14] MEDS ORDERED: KETOROLAC TROMETHAMINE 60 MG/2 ML VIAL IM ONE (09:03)
[2020-08-14] MEDS ORDERED: KETOROLAC TROMETHAMINE 60 MG/2 ML VIAL ONE (09:08)
== END 2020-08-14 11:45 | disposition home or self-care (01) ==
LOC: JERFT 08:37
PROC: 3E0233Z Introduction of Anti-inflammatory into Muscle, Percutaneous Approach (ICD-10-PCS; principal; 2020-08-14)
DX: M54.6 Pain in thoracic spine (principal)
CPT/HCPCS: 71046-TC-FY; 72050-TC-FY; 72070-TC-FY; 99284-25

== ENCOUNTER 2021-07-01 04:49 | Day surgery (SDC) | payer OTHER ==
[2021-06-29 14:39] VITALS: BMI 29.2
[2021-07-01 12:12] VITALS: TEMP 97.9
[2021-07-01 12:50] VITALS: BP 131/71; PULSE 54
== END 2021-07-01 12:48 | disposition home or self-care (01) ==
LOC: JASU-ENDO 04:49
PROVIDERS: ATTEND Internal Medicine Gastroenterology
PROC: 0DB68ZX Excision of Stomach, Via Natural or Artificial Opening Endoscopic, Diagnostic (ICD-10-PCS; 2021-07-01)
PROC: 0DBL8ZX Excision of Transverse Colon, Via Natural or Artificial Opening Endoscopic, Diagnostic (ICD-10-PCS; principal; 2021-07-01 12:15)
DX: Z12.11 Encounter for screening for malignant neoplasm of colon (principal); D12.3 Benign neoplasm of transverse colon; K29.50 Unspecified chronic gastritis without bleeding; K31.7 Polyp of stomach and duodenum
CPT/HCPCS: 88305-TC; 88342-TC

== ENCOUNTER 2022-08-11 04:31 | Day surgery (SDC) | payer OTHER ==
[2022-08-10 10:47] VITALS: BMI 31.3
[2022-08-11 10:04] VITALS: RESP 18
[2022-08-11] MEDS ORDERED: ALBUTEROL SO4 HFA INHALER IH ONE (10:28)
[2022-08-11 12:00] VITALS: BP 138/50; PULSE 65
[2022-08-11 15:21] VITALS: TEMP 97.1
== END 2022-08-11 11:33 | disposition home or self-care (01) ==
LOC: JASU-ENDO 04:31
PROVIDERS: ATTEND Internal Medicine Gastroenterology
PROC: 0DB78ZX Excision of Stomach, Pylorus, Via Natural or Artificial Opening Endoscopic, Diagnostic (ICD-10-PCS; 2022-08-11)
PROC: 0DB68ZX Excision of Stomach, Via Natural or Artificial Opening Endoscopic, Diagnostic (ICD-10-PCS; principal; 2022-08-11 09:00)
DX: K31.A0 Gastric intestinal metaplasia, unspecified (principal); K29.50 Unspecified chronic gastritis without bleeding; K31.7 Polyp of stomach and duodenum
CPT/HCPCS: 88305-TC; 88341-TC; 88342-TC

== ENCOUNTER 2023-10-25 12:06 | Emergency (ER) | payer OTHER ==
[2023-10-25 12:12] VITALS: BMI 31.8
[2023-10-25] MEDS ORDERED: ACETAMINOPHEN INJECTION 100 ML IVPB ONE (13:28)
[2023-10-25 13:32] LABS: EOS % 1.8 % (0-4.5); HEMATOCRIT 36.7 % (32.4-45.2); HEMOGLOBIN 11.9 GM/dL (10.7-15.3); LYMPH % 15.9 % (8-40); MCH 26.9 pg (25.7-33.7); MCHC 32.4 g/dl (32.0-36.0); MEAN CELL VOLUME 83.1 fl (80-96); MONO % 8.8 % (3.8-10.2); NEUT % 72.5 % (42.8-82.8); RBC 4.42 M/mm3 (3.60-5.2); RDW 15.4 % (11.6-15.6); WHITE BLOOD COUNT 7.4 K/mm3 (4.0-10.0)
[2023-10-25] MEDS: ACETAMINOPHEN 1000 MG/100 ML BAG IVPB ONE (13:36)
[2023-10-25 13:49] LABS: POTASSIUM 4.7 mmol/L (3.5-5.1)
[2023-10-25 13:50] LABS: CALCIUM 9.2 mg/dL (8.5-10.1)
[2023-10-25 13:52] LABS: ALBUMIN 3.6 g/dl (3.4-5.0); BLOOD UREA NITROGEN 11.6 mg/dL (7-18)
[2023-10-25 13:54] LABS: CREATININE 0.5 mg/dL (0.55-1.3)
[2023-10-25 13:56] LABS: BILIRUBIN,TOTAL 0.4 mg/dL (0.2-1); TOT PROT 7.2 g/dl (6.4-8.2)
[2023-10-25] MEDS ORDERED: morphine SULFATE 4 MG/ML VIAL ONE (16:07)
[2023-10-25] MEDS: morphine CARPU-JECT 4 MG/1 ML DISP.SYRIN IVPUSH ONE (16:17)
[2023-10-25 16:19] VITALS: BP 141/85; PULSE 56; RESP 14; TEMP 97.8
== END 2023-10-25 17:32 | disposition home or self-care (01) ==
LOC: JER 12:06
PROC: 3E033NZ Introduction of Analgesics, Hypnotics, Sedatives into Peripheral Vein, Percutaneous Approach (ICD-10-PCS; principal; 2023-10-25)
PROC: 3E033NZ Introduction of Analgesics, Hypnotics, Sedatives into Peripheral Vein, Percutaneous Approach (ICD-10-PCS; 2023-10-25)
DX: M54.2 Cervicalgia (principal); R51.9 Headache, unspecified; M25.519 Pain in unspecified shoulder; Z20.822 Contact with and (suspected) exposure to COVID-19
CPT/HCPCS: 0241U-QW; 36415; 70491-TC; 71045-TC-FY; 80053; 84439; 84443; 84484; 85025; 93005; 93010; 99285-25; J0131